=== PATIENT | female | born 2000 | race Caucasian/White ===

== ENCOUNTER 2021-02-16 12:36 | Emergency (ER) | payer SELFPAY ==
[~2021-02-16] VITALS: Ht 180.3 cm; Wt 129.0 kg
== END 2021-02-16 15:18 | disposition home or self-care (01) ==
LOC: ED 12:36
DX: K64.4 Residual hemorrhoidal skin tags (principal); Z88.0 Allergy status to penicillin
CPT/HCPCS: 99282